=== PATIENT | male | born 1990 | race Caucasian/White ===

== ENCOUNTER 2018-01-22 16:30 | Inpatient (IN) ==
[2018-01-22] MEDS ORDERED: Ketorolac Inj 30 MG/ML (IVP) Vial IV.PUSH ONE (17:27)
[2018-01-22] MEDS ORDERED: Sod Chloride 0.9% Inj 1,000 ML IV.SIG SCH (17:30)
[2018-01-22 17:52] LABS: Baso % (Auto) 0.1 % (0.0-2.0); Hematocrit 39.5 % (39.0-51.0); Hemoglobin 13.5 gm/dL (13.0-17.0); Lymph # (Auto) 0.5 th/mm3 (1.0-4.8); Lymph % (Auto) 2.8 % (9.0-44.0); Mean Corpuscular HGB Conc 34.3 % (32.0-36.0); Mean Corpuscular Hemoglobin 30.5 pg (27.0-34.0); Mean Corpuscular Volume 89.1 fL (80.0-100.0); Mean Platelet Volume 8.9 fL (7.0-11.0); Mono # (Auto) 1.7 th/mm3 (0.0-0.9); Neut # (Auto) 14.9 th/mm3 (1.8-7.7); Neut % (Auto) 87.1 % (16.0-70.0); Platelet Count 109 th/mm3 (150-450); Red Blood Count 4.43 mil/mm3 (4.50-5.90); Red Cell Distribution Width 13.8 % (11.6-17.2); White Blood Count 17.1 th/mm3 (4.0-11.0)
--- NOTE | 2018-01-22 17:54 | XR ---
EXAM DATE: 01/22/2018 5:43 PM EST AGE/SEX: 27 years / Male INDICATIONS: . Cough. CLINICAL DATA: This is the patient's initial encounter. Patient reports that signs and symptoms have been present for 1 day and indicates a pain score of 0/10. MEDICAL/SURGICAL HISTORY: None. None. COMPARISON: No prior exams available for comparison. FINDINGS: PA and lateral views of the chest demonstrate the lungs to be symmetrically aerated without evidence of mass, infiltrate or effusion. The cardiomediastinal contours are unremarkable. Osseous structures are intact. CONCLUSION: No acute intrathoracic disease. Electronically signed by: Vidal Rodrigues MD Board Certified Radiologist 01/22/2018 5:53 PM EST
[2018-01-22 18:12] LABS: Calcium 8.7 mg/dL (8.5-10.1); Carbon Dioxide 29.6 meq/L (21.0-32.0); Potassium 3.7 meq/L (3.5-5.1)
[2018-01-22] MEDS ORDERED: Sod Chloride 0.9% Inj 700 ML IV.SIG SCH (18:15)
--- NOTE | 2018-01-22 18:20 | ED ---
HPI General Chief complaint: Urogenital-Male Stated complaint: Kidney Stone Complaint Time Seen by Provider: 01/22/18 17:14 Source: patient and family Mode of arrival: ambulatory Limitations: no limitations History of Present Illness HPI narrative: Patient is a 27-year-old male, past medical history significant for HIV, compliant with his medications, who presents with complaint of right flank pain. He eats that he was seen here almost 1 month ago and diagnosed with a urinary tract infection. He was discharged home on ciprofloxacin but has not taken it as it interferes with his antiretroviral medications. He had a CT at that time was 1 month ago which did not show any renal stones. Over the last 2-3 days he has had worsening right flank pain with nausea, vomiting, fever, chills. He does complain of congestion and cough over the last several days as well. No diarrhea. No IV drug abuse, dental procedures, invasive procedures recently. He states that his last viral load was low and CD4 count was high. Onset (ago): week(s) Location: right Radiation: flank Severity: moderate Quality: burning and aching Pain Consistency: constant Relieving factors: none Exacerbating factors: none Associated symptoms: Reports nausea/vomiting Treatments prior to arrival: Reports none Related Data Home Medications Medication Instructions Recorded Confirmed divalproex 500 mg PO BID 01/22/18 01/22/18 [id number]-tenof alafen 1 tab PO DAILY 01/22/18 01/22/18 [Genvoya] sertraline 100 mg PO DAILY 01/22/18 01/22/18 Allergies Allergy/AdvReac Type Severity Reaction Status Date / Time No Known Allergies Allergy Verified 12/28/17 14:23 Review of Systems ROS: all other systems reviewed are negative [facility] Medical History Medical History HIV disease (Acute) Kidney stones (Acute) Social History Social History Substance History: Active Abuse Second Hand Smoke Exposure: No Smoking Status: Never smoker Tobacco Type: Smokeless Tobacco How Often Do You Have a Drink Containing Alcohol: 2 to 3 times a week Recent Travel in [facility] within the Last 8 Weeks: No Recent Out of Country Travel within the Last 8 Weeks: No Substance Abuse Detail Marijuana: Substance Use Status: Active Route Used Substance Abuse: Inhalation Reason for Use: Get High Immunization History Tetanus Immunization: <5 Years Exam Narrative Exam Narrative: GENERAL: Well-appearing male in no acute distress SKIN: Focused skin assessment warm/dry. No rashes. HEAD: Atraumatic. Normocephalic. EYES: Pupils equal and round. No scleral icterus. No injection or drainage. ENT: No nasal bleeding or discharge. Mucous membranes pink and moist. NECK: Trachea midline. No JVD. CARDIOVASCULAR: Regular rate and rhythm. No murmur appreciated. Intact and equal peripheral pulses. RESPIRATORY: No accessory muscle use. Clear to auscultation. Breath sounds equal bilaterally. GASTROINTESTINAL: Abdomen soft, non-tender, nondistended. Hepatic and splenic margins not palpable. Right CVA tenderness. MUSCULOSKELETAL: No obvious deformities. No clubbing. No cyanosis. No edema. NEUROLOGICAL: Awake and alert. No obvious cranial nerve deficits. Motor grossly within normal limits. Normal speech. PSYCHIATRIC: Appropriate mood and affect; insight and judgment normal. Course Initial Documented Vital Signs Temperature 100.8 F H 01/22/18 16:32 Pulse Rate 99 H 01/22/18 16:32 Respiratory Rate 18 01/22/18 16:32 Blood Pressure 123/66 01/22/18 16:32 Pulse Oximetry 98 01/22/18 16:32 Last Documented Vital Signs Temperature 99.2 F 01/22/18 20:42 Pulse Rate 78 01/22/18 20:42 Respiratory Rate 16 01/22/18 20:42 Blood Pressure 105/59 L 01/22/18 20:42 Pulse Oximetry 99 01/22/18 20:42 Medical Decision Making [facility] Narrative Medical decision making narrative: Patient is a 27-year-old male, past medical history significant for HIV, compliant with his antiretroviral treatment, who presents with complaint of flank pain with nausea, vomiting, fever. He is febrile but not tachycardic on arrival here. Labs do reveal leukocytosis with a normal creatinine. At that time sepsis protocol was initiated and he was given Rocephin after blood cultures were drawn. Urine was concerning for infection and cultures have been sent. Ultrasound was done of the kidneys which did not show hydronephrosis. He has been admitted to Dr. Baig, hospitalist community relations director, for sepsis secondary to UTI. Medical Screen Exam Complete: Yes Emergency Medical Condition: Yes Differential Diagnosis Differential Diagnosis: Differential diagnosis includes but is not limited to renal stone, pyelonephritis, influenza. Medical Records Medical records reviewed: Yes I reviewed the patient's medical records. Lab Data Lab results reviewed: Yes I reviewed the patient's lab results. Result diagrams: 01/22/18 17:30 01/22/18 17:30 Lab Results 01/22/18 01/22/18 01/22/18 Range/Units 17:30 17:30 18:05 WBC 17.1 H (4.0-11.0) th/mm3 RBC 4.43 L (4.50-5.90) mil/mm3 Hgb 13.5 (13.0-17.0) gm/dL Hct 39.5 (39.0-51.0) % MCV 89.1 (80.0-100.0) fL MCH 30.5 (27.0-34.0) pg MCHC 34.3 (32.0-36.0) % RDW 13.8 (11.6-17.2) % Plt Count 109 L (150-450) th/mm3 MPV 8.9 (7.0-11.0) fL Neut % (Auto) 87.1 H (16.0-70.0) % Lymph % (Auto) 2.8 L (9.0-44.0) % [place] % (Auto) 10.0 H (0.0-8.0) % Eos % (Auto) 0.0 (0.0-4.0) % Baso % (Auto) 0.1 (0.0-2.0) % Neut # (Auto) 14.9 H (1.8-7.7) th/mm3 Lymph # (Auto) 0.5 L (1.0-4.8) th/mm3 [place] # (Auto) 1.7 H (0.0-0.9) th/mm3 Eos # (Auto) 0.0 (0.0-0.4) th/mm3 Baso # (Auto) 0.0 (0.0-0.2) th/mm3 WBC Differential . Differential Comment Auto diff final Sodium 139 (136-145) meq/L Potassium 3.7 (3.5-5.1) meq/L Chloride 104 (98-107) meq/L Carbon Dioxide 29.6 (21.0-32.0) meq/L Anion Gap 5 (5-15) meq/L BUN 12 (7-18) mg/dL Creatinine 1.15 (0.60-1.30) mg/dL Estimated GFR 75 L (>89) mL/min Random Glucose 112 H (74-106) mg/dL Lactic Acid (0.4-2.0) mmol/L Calcium 8.7 (8.5-10.1) mg/dL Urine Color Yellow (Yellw/Straw) Urine Clarity Cloudy H (Clear) Urine pH 7.0 (5.0-8.5) Ur Specific [place] 1.014 (1.002-1.035) Urine Protein 100 H (Neg-Trace) mg/dL Urine Glucose (UA) Negative (Negative) mg/dL Urine Ketones Negative (Negative) mg/dL Urine Occult Blood Small H (Negative) Urine Nitrate Positive H (Negative) Urine Bilirubin Negative (Negative) Urine Urobilinogen Less than 2 (Less than 2) mg/dL Ur Leukocyte Esterase Large H (Negative) Urine RBC 7 H (0-3) /hpf Urine WBC (0-5) /hpf Urine WBC Clumps Moderate H (None) Amorphous Sediment Rare H (None) /hpf Urine Bacteria Few H (None) /hpf Micro UA Comment Culture indicated Ur Microscopic Review Not Reportable Urine Culture Comments Culture indicated 01/22/18 Range/Units 18:20 WBC (4.0-11.0) th/mm3 RBC (4.50-5.90) mil/mm3 Hgb (13.0-17.0) gm/dL Hct (39.0-51.0) % MCV (80.0-100.0) fL MCH (27.0-34.0) pg MCHC (32.0-36.0) % RDW (11.6-17.2) % Plt Count (150-450) th/mm3 MPV (7.0-11.0) fL Neut % (Auto) (16.0-70.0) % Lymph % (Auto) (9.0-44.0) % [place] % (Auto) (0.0-8.0) % Eos % (Auto) (0.0-4.0) % Baso % (Auto) (0.0-2.0) % Neut # (Auto) (1.8-7.7) th/mm3 Lymph # (Auto) (1.0-4.8) th/mm3 [place] # (Auto) (0.0-0.9) th/mm3 Eos # (Auto) (0.0-0.4) th/mm3 Baso # (Auto) (0.0-0.2) th/mm3 WBC Differential Differential Comment Sodium (136-145) meq/L Potassium (3.5-5.1) meq/L Chloride (98-107) meq/L Carbon Dioxide (21.0-32.0) meq/L Anion Gap (5-15) meq/L BUN (7-18) mg/dL Creatinine (0.60-1.30) mg/dL Estimated GFR (>89) mL/min Random Glucose (74-106) mg/dL Lactic Acid 1.6 (0.4-2.0) mmol/L Calcium (8.5-10.1) mg/dL Urine Color (Yellw/Straw) Urine Clarity (Clear) Urine pH (5.0-8.5) Ur Specific [place] (1.002-1.035) Urine Protein (Neg-Trace) mg/dL Urine Glucose (UA) (Negative) mg/dL Urine Ketones (Negative) mg/dL Urine Occult Blood (Negative) Urine Nitrate (Negative) Urine Bilirubin (Negative) Urine Urobilinogen (Less than 2) mg/dL Ur Leukocyte Esterase (Negative) Urine RBC (0-3) /hpf Urine WBC (0-5) /hpf Urine WBC Clumps (None) Amorphous Sediment (None) /hpf Urine Bacteria (None) /hpf Micro UA Comment Ur Microscopic Review Urine Culture Comments Imaging Data Attestation: I personally reviewed and interpreted this imaging study as follows : Radiologist's impression: Abdomen/Bladder Ultrasound 01/22/18 17:27 CONCLUSION: 1. Echogenic kidneys consistent with medical renal disease. 2. No sonographic evidence for obstructive uropathy. Chest X-Ray 01/22/18 17:27 CONCLUSION: No acute intrathoracic disease. Discharge Plan Discharge Disposition Patient Disposition: ED Admit(ED Internal Use Only) Discharge Condition Condition: Stable Discharge Order Discharge Orders: ED Use Only Admit Order (Routine); Ordered 01/22/18 Ordered By: Ilsa Art Discharge Details Diagnosis: Acute pyelonephritis, Sepsis Physicians Team ED Provider: Ilsa Art Primary Care Provider: UNKNOWN, Attending Provider: Mateus Baig Status ED Status: Admitted Patient
[2018-01-22] MEDS: Sod Chloride 0.9% Inj 1,000 ML IV.SIG SCH ×2 (18:22→19:21)
--- NOTE | 2018-01-22 18:23 | US ---
EXAM DATE: 01/22/2018 6:18 PM EST AGE/SEX: 27 years / Male INDICATIONS: Flank pain. CLINICAL DATA: This is the patient's initial encounter. Patient reports that signs and symptoms have been present for 2 days and indicates a pain score of 1/10. MEDICAL/SURGICAL HISTORY: HIV. Kidney stones. None. COMPARISON: [facility] – [place], CT ABDOMEN & PELVIS W/O CONTRAST, 12/28/2017. . MEASUREMENTS: Right Kidney:__11.9 x 5.3 x 5.2 cm Left Kidney:__11.2 x 5.2 x 6.3 cm FINDINGS: Right Kidney: Increased echogenicity. No mass or hydronephrosis. Left Kidney: Increased echogenicity. No mass or hydronephrosis. Bladder: Decompressed. Not well evaluated. Other: None. CONCLUSION: 1. Echogenic kidneys consistent with medical renal disease. 2. No sonographic evidence for obstructive uropathy. Electronically signed by: Manish Mccall MD Board Certified Radiologist 01/22/2018 6:22 PM MARCI Dick
[2018-01-22] MEDS ORDERED: Acetaminophen 325 MG Tablet PO ONE (18:58)
[2018-01-22 19:23] LABS: Amorphous Sediment,Urine Rare /hpf; Bacteria,Urine Few /hpf; Bilirubin,Urine Negative (Negative); Clarity,Urine Cloudy (Clear); Color,Urine Yellow (Yellw/Straw); Glucose,Urine (UA) Negative (Negative); Leukocyte Esterase,Urine Large (Negative); Nitrite,Urine Positive (Negative); Specific Gravity,Urine 1.014 (1.002-1.035)
[2018-01-22] MEDS ORDERED: Bisacodyl 10 MG Supp RECTAL PRN (20:32)
[2018-01-22] MEDS: Divalproex 500 MG DR Tablet PO SCH (22:19)
[2018-01-22] MEDS: Sod Chloride 0.9% Inj 1,000 ML IV.CONT SCH (22:20)
[2018-01-22] MEDS ORDERED: Melatonin 5 MG Tablet PO PRN (22:46)
[2018-01-23] MEDS: Acetaminophen 325 MG Tablet PO PRN ×3 (00:31→13:02)
--- NOTE | 2018-01-23 04:36 | P.HPIM ---
History of Present Illness Primary Care Physician: UNKNOWN Inpatient Certification: I certify that the inpatient services were ordered in accordance with Medicare regulations governing the order. This includes certification that hospital inpatient services are reasonable and necessary and in the case of services not specified as inpatient-only under 42 CFR 419.22(n), that they are appropriately provided as inpatient services in accordance to with the 2-midnight benchmark under 43 CFR 412.3(e) Estimated Total Length of Stay (Days): 3 Plans for Post Hospital Care: Not yet determined PMFSH - History History Provided By: Patient - Medical History Medical History: Medical History (Last Reviewed 01/22/18 @ 18:18 by Ilsa Art MD) HIV disease Kidney stones - Tobacco History Second Hand Smoke Exposure: No Smoking Status: Former smoker Tobacco Type: Cigarettes - Alcohol History How Often Do You Have a Drink Containing Alcohol: 2 to 4 times a month - Substance Use History Substance History: Active Abuse - Substance Use Type Marijuana Status: Active Route Used: Inhalation Reason for Use: Get High Crack/Cocaine Status: Sustained Remission Route Used: Inhalation Reason for Use: Get High Methamphetamine Status: Sustained Remission Route Used: Inhalation Reason for Use: Get High - Travel History Recent Travel in the [place] Within the Last 8 Weeks: No Recent Travel Out of the Country Within the Last 8 Weeks: No - Immunization History Tetanus Immunization: <5 Years Medications and Allergies Active Medications: Active Medications Acetaminophen (Tylenol) 650 mg PO Q4H PRN PRN Reason: Temp > 100.4 Last Admin: 01/23/18 00:31 Dose: 650 mg Al Hydroxide/Mg Hydroxide (Milk Of Magntj Liq) 30 ml PO Q12H PRN PRN Reason: Mild Constipation Bisacodyl (Dulcolax Supp) 10 mg RECTAL DAILY PRN PRN Reason: SEVERE CONSITIPATION Divalproex Sodium (Depakote Dr) 500 mg PO BID FLORES Last Admin: 01/22/18 22:19 Dose: 500 mg Elvitegravir/Cobicis/Emtricit/Tenof (Stribild 150/150/200/300 Mg) 1 tab PO DAILY FLORES Sodium Chloride (Ns Inj) 1,000 mls @ 0 mls/hr IV.SIG .Q0M FLORES Last Infusion: 01/22/18 20:22 Dose: Infused Sodium Chloride (Ns Inj) 700 mls @ 0 mls/hr IV.SIG .Q0M FLORES Ceftriaxone Sodium 1,000 mg/ (Sodium Chloride) 100 mls @ 200 mls/hr IV.SIG Q24H FLORES Sodium Chloride (Ns Inj) 1,000 mls @ 100 mls/hr IV.CONT .Q10H [facility] Last Admin: 01/22/18 22:20 Dose: 100 mls/hr Lactulose (Lactulose Liq) 30 ml PO DAILY PRN PRN Reason: SEVERE CONSITIPATION Melatonin (Melatonin) 5 mg PO HS PRN PRN Reason: INSOMNIA Last Admin: 01/22/18 23:48 Dose: 5 mg Ondansetron HCl (Zofran Inj) 4 mg IV.PUSH Q6H PRN PRN Reason: NAUSEA OR VOMITING Last Admin: 01/22/18 23:48 Dose: 4 mg Sennosides (Senokot) 17.2 mg PO Q12H PRN PRN Reason: Moderate Constipation Sertraline HCl (Zoloft) 100 mg PO DAILY [facility] Sodium Chloride (Ns Flush) 2 ml IV.FLUSH BID [facility] Last Admin: 01/22/18 22:20 Dose: 2 ml Sodium Chloride (Ns Flush) 2 ml IV.FLUSH PRN PRN PRN Reason: FLUSH AFTER USING IV ACCESS Allergies Allergy/AdvReac Type Severity Reaction Status Date / Time No Known Allergies Allergy Verified 12/28/17 14:23 Home Medications Medication Instructions Recorded Confirmed Type divalproex 500 mg PO BID 01/22/18 01/22/18 History makkorp-aot-sadkq-tenof alafen 1 tab PO DAILY 01/22/18 01/22/18 History [Genvoya] sertraline 100 mg PO DAILY 01/22/18 01/22/18 History Exam Vital signs: Vital Signs 01/22/18 16:32 01/22/18 20:42 01/22/18 22:00 Temperature 100.8 F H 99.2 F 98.9 F Pulse Rate 99 H 78 87 Respiratory Rate 18 16 20 Blood Pressure 123/66 105/59 L 107/62 Pulse Oximetry 98 99 99 01/23/18 00:00 01/23/18 02:32 Temperature 102.3 F H 99.5 F Pulse Rate 86 Respiratory Rate 18 Blood Pressure 106/55 L Pulse Oximetry 98 Intake & Output 12/01/22/18 01/23/18 06:59 18:59 06:59 Intake Total 999 Balance 999 Weight 81.647 kg Intake: IV 999 NS Inj 1,000 ML @ Wide Open IV. 1000 999 SIG .Q0M FLORES Rx#:[id number] Rocephin Inj 1,000 MG In NS Inj 100 / 100 100 ML @ 200 mls/hr IV.SIG ONCE ONE Rx#:[id number] Results - Labs CBC & Chem 7: 01/22/18 17:30 01/22/18 17:30 Labs: Short CBC 01/22/18 Range/Units 17:30 WBC 17.1 H (4.0-11.0) th/mm3 Hgb 13.5 (13.0-17.0) gm/dL Hct 39.5 (39.0-51.0) % Plt Count 109 L (150-450) th/mm3 BMP 01/22/18 17:30 Sodium 139 Potassium 3.7 Chloride 104 Carbon Dioxide 29.6 BUN 12 Creatinine 1.15 Calcium 8.7 Urine 01/22/18 Range/Units 18:05 Urine Color Yellow (Yellw/Straw) Urine Clarity Cloudy H (Clear) Urine pH 7.0 (5.0-8.5) Ur Specific [place] 1.014 (1.002-1.035) Urine Protein 100 H (Neg-Trace) mg/dL Urine Glucose (UA) Negative (Negative) mg/dL - Imaging Impressions Abdomen/Bladder Ultrasound 01/22/18 17:27 CONCLUSION: 1. Echogenic kidneys consistent with medical renal disease. 2. No sonographic evidence for obstructive uropathy. Chest X-Ray 01/22/18 17:27 CONCLUSION: No acute intrathoracic disease. Caprini VTE Risk Assessment Caprini VTE Risk Assessment: No/Low Risk (score <= 1) Caprini Risk Assessment Model: Point Value = 1 Point Value = 2 Point Value = 3 Point Value = 5 Age 41-60 Minor surgery BMI > 25 kg/m2 Swollen legs Varicose veins or History of unexplained or recurrent spontaneous Oral contraceptives or hormone replacement Sepsis (< 1 month) Serious lung disease, including pneumonia (< 1 month) Abnormal pulmonary function Acute myocardial infarction Congestive heart failure (< 1 month) History of inflammatory bowel disease Medical patient at bed rest Age 61-74 Arthroscopic surgery Major open surgery (> 45 min) Laparoscopic surgery (> 45 min) Malignancy Confined to bed (> 72 hours) Immobilizing plaster cast Central venous access Age >= 75 History of VTE Family history of VTE Factor V Leiden Prothrombin [id number] Lupus anticoagulant Anticardiolipin antibodies Elevated serum homocysteine Heparin-induced thrombocytopenia Other congenital or acquired thrombophilia Stroke (< 1 month) Elective arthroplasty Hip, pelvis, or leg fracture Acute spinal cord injury (< 1 month) Prophylaxis Regimen: Total Risk Factor Score Risk Level Prophylaxis Regimen 0-1 Low Early ambulation 2 Moderate Order ONE of the following: *Sequential Compression Device (SCD) *Heparin 5000 units SQ BID 3-4 Higher Order ONE of the following medications: *Heparin 5000 units SQ TID *Enoxaparin/Lovenox 40 mg SQ daily (WT < 150 kg, CrCl > 30 mL/min) *Enoxaparin/Lovenox 30 mg SQ daily (WT < 150 kg, CrCl > 10-29 mL/min) *Enoxaparin/Lovenox 30 mg SQ BID (WT < 150 kg, CrCl > 30 mL/min) AND/OR *Sequential Compression Device (SCD) 5 or more Highest Order ONE of the following medications: *Heparin 5000 units SQ TID (Preferred with Epidurals) *Enoxaparin/Lovenox 40 mg SQ daily (WT < 150 kg, CrCl > 30 mL/min) *Enoxaparin/Lovenox 30 mg SQ daily (WT < 150 kg, CrCl > 10-29 mL/min) *Enoxaparin/Lovenox 30 mg SQ BID (WT < 150 kg, CrCl > 30 mL/min) AND *Sequential Compression Device (SCD) Assessment and Plan - Plan //Sepsis //Suspected right sided pyelonephritis -Renal ultrasound without obstruction Recent UTI last month with E. coli pansensitive Fever 102.3, leukocytosis, UTI Urinalysis positive for UTI. Blood cultures, urine cultures. Start on ceftriaxone and monitor. //HIV -We will check CD4 count and continue antiretroviral medications //Depression. Chronic. No SI. Continue home medication //Continue home Depakote. Discussed Condition With: Patient, nurse, ED physician. H&P: Quality - VTE Deep Vein Thrombosis/Pulmonary Embolism Present on Admission: No
--- NOTE | 2018-01-23 04:42 | P.HPIM ---
History of Present Illness Primary Care Physician: UNKNOWN History of Present Illness: 27-year-old male with a history of HIV compliant with antiretrovirals, depression, recent kidney stone, UTI last month, however unable to complete treatment with Cipro due to antiretrovirals. He presents with a 4-day history of dysuria, as well as worsening intermittent sharp right flank pain radiating intermittently to groin as well as back. He reports nausea and some nonbloody omy-pqivsv-izqvum vomiting due to the pain. He also reports subjective fevers. Denies any chest pain, shortness of breath, lightheadedness, dizziness. Inpatient Certification: I certify that the inpatient services were ordered in accordance with Medicare regulations governing the order. This includes certification that hospital inpatient services are reasonable and necessary and in the case of services not specified as inpatient-only under 42 CFR 419.22(n), that they are appropriately provided as inpatient services in accordance to with the 2-midnight benchmark under 43 CFR 412.3(e) Estimated Total Length of Stay (Days): 3 Plans for Post Hospital Care: Not yet determined Review of Systems All other systems reviewed negative except as stated in HPI [facility] - History History Provided By: Patient - Medical History Medical History: Medical History (Last Reviewed 01/23/18 @ 04:39 by Mateus Baig MD) HIV disease Kidney stones - Surgical History Surgical History: Surgical History (Last Updated 01/23/18 @ 04:40 by Mateus Baig MD) No history of previous surgery - Family History Family History: Family History (Last Updated 01/23/18 @ 04:40 by Mateus Baig MD) Mother Heart problem Father Heart problem - Tobacco History Second Hand Smoke Exposure: No Smoking Status: Former smoker Tobacco Type: Cigarettes - Alcohol History How Often Do You Have a Drink Containing Alcohol: 2 to 4 times a month - Substance Use History Substance History: Active Abuse - Substance Use Type Marijuana Status: Active Route Used: Inhalation Reason for Use: Get High Crack/Cocaine Status: Sustained Remission Route Used: Inhalation Reason for Use: Get High Methamphetamine Status: Sustained Remission Route Used: Inhalation Reason for Use: Get High - Travel History Recent Travel in the [place] Within the Last 8 Weeks: No Recent Travel Out of the Country Within the Last 8 Weeks: No - Immunization History Tetanus Immunization: <5 Years Medications and Allergies Active Medications: Active Medications Acetaminophen (Tylenol) 650 mg PO Q4H PRN PRN Reason: Temp > 100.4 Last Admin: 01/23/18 00:31 Dose: 650 mg Al Hydroxide/Mg Hydroxide (Milk Of Magnesia Liq) 30 ml PO Q12H PRN PRN Reason: Mild Constipation Bisacodyl (Dulcolax Supp) 10 mg RECTAL DAILY PRN PRN Reason: SEVERE CONSITIPATION Divalproex Sodium (Depakote Dr) 500 mg PO BID [facility] Last Admin: 01/22/18 22:19 Dose: 500 mg Elvitegravir/Cobicis/Emtricit/Tenof (Stribild 150/150/200/300 Mg) 1 tab PO DAILY [facility] Sodium Chloride (Ns Inj) 1,000 mls @ 0 mls/hr IV.SIG .Q0M [facility] Last Infusion: 01/22/18 20:22 Dose: Infused Sodium Chloride (Ns Inj) 700 mls @ 0 mls/hr IV.SIG .Q0M [facility] Ceftriaxone Sodium 1,000 mg/ (Sodium Chloride) 100 mls @ 200 mls/hr IV.SIG Q24H [facility] Sodium Chloride (Ns Inj) 1,000 mls @ 100 mls/hr IV.CONT .Q10H [facility] Last Admin: 01/22/18 22:20 Dose: 100 mls/hr Lactulose (Lactulose Liq) 30 ml PO DAILY PRN PRN Reason: SEVERE CONSITIPATION Melatonin (Melatonin) 5 mg PO HS PRN PRN Reason: INSOMNIA Last Admin: 01/22/18 23:48 Dose: 5 mg Ondansetron HCl (Zofran Inj) 4 mg IV.PUSH Q6H PRN PRN Reason: NAUSEA OR VOMITING Last Admin: 01/22/18 23:48 Dose: 4 mg Sennosides (Senokot) 17.2 mg PO Q12H PRN PRN Reason: Moderate Constipation Sertraline HCl (Zoloft) 100 mg PO DAILY [facility] Sodium Chloride (Ns Flush) 2 ml IV.FLUSH BID [facility] Last Admin: 01/22/18 22:20 Dose: 2 ml Sodium Chloride (Ns Flush) 2 ml IV.FLUSH PRN PRN PRN Reason: FLUSH AFTER USING IV ACCESS Allergies Allergy/AdvReac Type Severity Reaction Status Date / Time No Known Allergies Allergy Verified 12/28/17 14:23 Home Medications Medication Instructions Recorded Confirmed Type divalproex 500 mg PO BID 01/22/18 01/22/18 History fyqnwlt-fok-bihec-tenof alafen 1 tab PO DAILY 01/22/18 01/22/18 History [Genvoya] sertraline 100 mg PO DAILY 01/22/18 01/22/18 History Exam Vital signs: Vital Signs 01/22/18 16:32 01/22/18 20:42 01/22/18 22:00 Temperature 100.8 F H 99.2 F 98.9 F Pulse Rate 99 H 78 87 Respiratory Rate 18 16 20 Blood Pressure 123/66 105/59 L 107/62 Pulse Oximetry 98 99 99 01/23/18 00:00 01/23/18 02:32 Temperature 102.3 F H 99.5 F Pulse Rate 86 Respiratory Rate 18 Blood Pressure 106/55 L Pulse Oximetry 98 Intake & Output 01/22/18 01/22/18 01/23/18 06:59 18:59 06:59 Intake Total 1000 / 1000 2099 Balance 1000 / 1000 2099 Weight 81.647 kg Intake: IV 1000 / 1000 2099 NS Inj 1,000 ML @ Wide Open IV. 1000 / 1000 1999 / 1999 SIG .Q0M [facility] Rx#:[id number] Rocephin Inj 1,000 MG In NS Inj 100 / 100 100 ML @ 200 mls/hr IV.SIG ONCE ONE Rx#:[id number] Narrative: GENERAL: Patient lying in bed. Appears comfortable. Alert and oriented x3. SKIN: Warm and dry. HEAD: Atraumatic. Normocephalic. EYES: Pupils equal and round. No scleral icterus. No injection or drainage. ENT: No nasal bleeding or discharge. Mucous membranes pink and moist. NECK: Trachea midline. No JVD. CARDIOVASCULAR: Regular rate and rhythm. RESPIRATORY: No accessory muscle use. Clear to auscultation. Breath sounds equal bilaterally. GASTROINTESTINAL: Abdomen soft, non-tender, nondistended. Hepatic and splenic margins not palpable. Positive right CVA tenderness. No abdominal rebound or guarding. MUSCULOSKELETAL: Extremities without clubbing, cyanosis, or edema. No obvious deformities. NEUROLOGICAL: Awake and alert. No obvious cranial nerve deficits. Motor grossly within normal limits. Five out of 5 muscle strength in the arms and legs. Normal speech. PSYCHIATRIC: Appropriate mood and affect; insight and judgment normal. Results - Labs CBC & Chem 7: 01/22/18 17:30 01/22/18 17:30 Labs: Short CBC 01/22/18 Range/Units 17:30 WBC 17.1 H (4.0-11.0) th/mm3 Hgb 13.5 (13.0-17.0) gm/dL Hct 39.5 (39.0-51.0) % Plt Count 109 L (150-450) th/mm3 BMP 01/22/18 17:30 Sodium 139 Potassium 3.7 Chloride 104 Carbon Dioxide 29.6 BUN 12 Creatinine 1.15 Calcium 8.7 Urine 01/22/18 Range/Units 18:05 Urine Color Yellow (Yellw/Straw) Urine Clarity Cloudy H (Clear) Urine pH 7.0 (5.0-8.5) Ur Specific Golden 1.014 (1.002-1.035) Urine Protein 100 H (Neg-Trace) mg/dL Urine Glucose (UA) Negative (Negative) mg/dL - Imaging Impressions Abdomen/Bladder Ultrasound 01/22/18 17:27 CONCLUSION: 1. Echogenic kidneys consistent with medical renal disease. 2. No sonographic evidence for obstructive uropathy. Chest X-Ray 01/22/18 17:27 CONCLUSION: No acute intrathoracic disease. Caprini VTE Risk Assessment Caprini VTE Risk Assessment: No/Low Risk (score <= 1) Caprini Risk Assessment Model: Point Value = 1 Point Value = 2 Point Value = 3 Point Value = 5 Age 41-60 Minor surgery BMI > 25 kg/m2 Swollen legs Varicose veins or History of unexplained or recurrent spontaneous Oral contraceptives or hormone replacement Sepsis (< 1 month) Serious lung disease, including pneumonia (< 1 month) Abnormal pulmonary function Acute myocardial infarction Congestive heart failure (< 1 month) History of inflammatory bowel disease Medical patient at bed rest Age 61-74 Arthroscopic surgery Major open surgery (> 45 min) Laparoscopic surgery (> 45 min) Malignancy Confined to bed (> 72 hours) Immobilizing plaster cast Central venous access Age >= 75 History of VTE Family history of VTE Factor V Leiden Prothrombin [id number] Lupus anticoagulant Anticardiolipin antibodies Elevated serum homocysteine Heparin-induced thrombocytopenia Other congenital or acquired thrombophilia Stroke (< 1 month) Elective arthroplasty Hip, pelvis, or leg fracture Acute spinal cord injury (< 1 month) Prophylaxis Regimen: Total Risk Factor Score Risk Level Prophylaxis Regimen 0-1 Low Early ambulation 2 Moderate Order ONE of the following: *Sequential Compression Device (SCD) *Heparin 5000 units SQ BID 3-4 Higher Order ONE of the following medications: *Heparin 5000 units SQ TID *Enoxaparin/Lovenox 40 mg SQ daily (WT < 150 kg, CrCl > 30 mL/min) *Enoxaparin/Lovenox 30 mg SQ daily (WT < 150 kg, CrCl > 10-29 mL/min) *Enoxaparin/Lovenox 30 mg SQ BID (WT < 150 kg, CrCl > 30 mL/min) AND/OR *Sequential Compression Device (SCD) 5 or more Highest Order ONE of the following medications: *Heparin 5000 units SQ TID (Preferred with Epidurals) *Enoxaparin/Lovenox 40 mg SQ daily (WT < 150 kg, CrCl > 30 mL/min) *Enoxaparin/Lovenox 30 mg SQ daily (WT < 150 kg, CrCl > 10-29 mL/min) *Enoxaparin/Lovenox 30 mg SQ BID (WT < 150 kg, CrCl > 30 mL/min) AND *Sequential Compression Device (SCD) Assessment and Plan - Plan //Sepsis //Suspected right sided pyelonephritis -Renal ultrasound without obstruction Recent UTI last month with E. coli pansensitive Fever 102.3, leukocytosis, UTI Urinalysis positive for UTI. Blood cultures, urine cultures. Start on ceftriaxone and monitor. //HIV -We will check CD4 count and continue antiretroviral medications //Depression. Chronic. No SI. Continue home medication //Continue home Depakote. Discussed Condition With: patient, Nurse, ED physician. H&P: Quality - VTE Deep Vein Thrombosis/Pulmonary Embolism Present on Admission: No
[2018-01-23] MEDS: Elvitegravir/Cobi/Emtricit/Tenof 150/150/200/300 MG Tablet PO SCH (08:22)
[2018-01-23] MEDS: Divalproex 500 MG DR Tablet PO SCH ×2 (08:23→21:16)
[2018-01-23] MEDS: Sertraline 100 MG Tablet PO SCH (08:23)
[2018-01-23] MEDS: Sod Chloride 0.9% Inj 1,000 ML IV.CONT SCH ×2 (08:24→17:13)
[2018-01-23 09:23] LABS: Baso % (Auto) 0.1 % (0.0-2.0); Hematocrit 36.6 % (39.0-51.0); Hemoglobin 12.1 gm/dL (13.0-17.0); Lymph # (Auto) 0.8 th/mm3 (1.0-4.8); Lymph % (Auto) 5.9 % (9.0-44.0); Mean Corpuscular HGB Conc 33.1 % (32.0-36.0); Mean Corpuscular Hemoglobin 29.9 pg (27.0-34.0); Mean Corpuscular Volume 90.2 fL (80.0-100.0); Mean Platelet Volume 9.4 fL (7.0-11.0); Mono # (Auto) 1.7 th/mm3 (0.0-0.9); Mono % (Auto) 12.1 % (0.0-8.0); Neut # (Auto) 11.3 th/mm3 (1.8-7.7); Neut % (Auto) 81.9 % (16.0-70.0); Platelet Count 86 th/mm3 (150-450); Red Blood Count 4.06 mil/mm3 (4.50-5.90); White Blood Count 13.8 th/mm3 (4.0-11.0)
[2018-01-23 09:55] LABS: Alanine Aminotransferase 58 U/L (12-78); Albumin 2.7 g/dL (3.4-5.0); Anion Gap 6 meq/L (5-15); Calcium 7.9 mg/dL (8.5-10.1); Carbon Dioxide 27.9 meq/L (21.0-32.0); Chloride 108 meq/L (98-107); Glomerular Filtration Rate 83 mL/min (>89); Glucose,Random 138 mg/dL (74-106); Potassium 4.2 meq/L (3.5-5.1); Sodium 142 meq/L (136-145)
[2018-01-23 10:01] LABS: Alkaline Phosphatase 63 U/L (45-117); Aspartate Aminotransferase 36 U/L (15-37); Blood Urea Nitrogen 14 mg/dL (7-18); Total Protein 5.9 g/dL (6.4-8.2)
[2018-01-23 10:20] LABS: Lymphocytes 3 % (9-44); Monocytes 8 % (0-8); Platelet Morphology Normal (Normal)
[2018-01-23] MEDS ORDERED: Ketorolac Inj 30 MG/ML (IVP) Vial IV.PUSH ONE (16:59)
[2018-01-23] MEDS: Morphine Sulfate Inj 2 MG/ML Vial IV.PUSH PRN (17:13)
[2018-01-24] MEDS: Morphine Sulfate Inj 2 MG/ML Vial IV.PUSH PRN (01:07)
[2018-01-24] MEDS: Sod Chloride 0.9% Inj 1,000 ML IV.CONT SCH ×3 (05:32→15:39)
[2018-01-24] MEDS: Divalproex 500 MG DR Tablet PO SCH ×2 (09:18→20:01)
[2018-01-24] MEDS: Elvitegravir/Cobi/Emtricit/Tenof 150/150/200/300 MG Tablet PO SCH (09:18)
[2018-01-24] MEDS: Sertraline 100 MG Tablet PO SCH (09:18)
--- NOTE | 2018-01-24 16:05 | P.PNIM ---
Subjective Interval history: Follow-up pyelonephritis, right flank pain Patient is sitting up in bed. He reports continued improvement in his right flank pain. No difficulty urinating. No hematuria. No fevers or chills. Patient states he has been applying alternating heat and ice to his right flank area with improvement in his symptoms. Physical Exam Vital signs: Last Vital Signs Temp 97.3 F L 01/24/18 07:36 Pulse 64 01/24/18 11:43 Resp 16 01/24/18 11:43 BP 112/66 01/24/18 11:43 Pulse Ox 99 01/24/18 11:43 Intake & Output 01/22/18 01/23/18 01/24/18 01/25/18 06:59 06:59 06:59 06:59 Intake Total 3280 / 3280 3100 / 3100 1000 / 1000 Output Total 900 / 900 Balance 3280 / 3280 2200 / 2200 1000 / 1000 Weight 81.647 kg 79.2 kg Narrative: GENERAL: Patient lying in bed. Appears comfortable. Alert and oriented x3. SKIN: Warm and dry. HEAD: Atraumatic. Normocephalic. EYES: Pupils equal and round. No scleral icterus. No injection or drainage. ENT: No nasal bleeding or discharge. Mucous membranes pink and moist. NECK: Trachea midline. No JVD. CARDIOVASCULAR: Regular rate and rhythm. RESPIRATORY: No accessory muscle use. Clear to auscultation. Breath sounds equal bilaterally. GASTROINTESTINAL: Abdomen soft, non-tender, nondistended. Positive right CVA tenderness. No abdominal rebound or guarding. MUSCULOSKELETAL: Extremities without clubbing, cyanosis, or edema. No obvious deformities. NEUROLOGICAL: Awake and alert. No obvious cranial nerve deficits. Motor grossly within normal limits. Five out of 5 muscle strength in the arms and legs. Normal speech. PSYCHIATRIC: Appropriate mood and affect; insight and judgment normal. Results Labs CBC & Chem 7: 01/23/18 08:42 01/23/18 08:42 Labs: Microbiology 01/22/18 18:05 Blood - Peripheral Aerobic Blood Culture - Preliminary No growth in 2 days 01/22/18 18:05 Blood - Peripheral Anaerobic Blood Culture - Preliminary No growth in 2 days 01/22/18 18:20 Blood - Peripheral Aerobic Blood Culture - Preliminary No growth in 2 days 01/22/18 18:20 Blood - Peripheral Anaerobic Blood Culture - Preliminary No growth in 2 days 01/22/18 18:05 Clean Catch Urine Urine Culture - Final Escherichia coli Assessment and Plan Plan Patient is a pleasant 27-year-old male with a past medical history significant for HIV compliant with antiretrovirals, depression, recent kidney stone and UTI last month. He presented with a 4-day history of dysuria and worsening of right -sided flank pain radiating intermittently to his groin as well as his back. E-coli urinary tract infection with acute pyelonephritis -CT abdomen and pelvis without IV contrast shows trace amount of free fluid deep within the pelvis Ultrasound abdomen bladder shows echogenic kidneys consistent with medical renal disease, no sonographic evidence of obstructive uropathy urine cx (+) e-coli, sensitive to Ceftriaxone -continue IV Ceftriaxone -continue IV fluids -pain meds PRN -supportive care HIV -Continue antiretroviral therapy -CD4 count pending Hx of depression, chronic and stable -continue home meds MDM: self Code: Full GI ppx: regular diet DVT ppx: SCD's, ambulatory Code Status: Full Discussed Condition With: RN, patient Discharge Planning: Home once medically optimized Progress Note: Quality VTE Deep Vein Thrombosis/Pulmonary Embolism Present on Admission: No
[2018-01-25] MEDS: Acetaminophen 325 MG Tablet PO PRN (01:04)
[2018-01-25] MEDS: Sod Chloride 0.9% Inj 1,000 ML IV.CONT SCH ×4 (02:17→20:23)
[2018-01-25] MEDS: Sertraline 100 MG Tablet PO SCH (09:33)
[2018-01-25] MEDS: Elvitegravir/Cobi/Emtricit/Tenof 150/150/200/300 MG Tablet PO SCH (09:34)
[2018-01-25] MEDS: Divalproex 500 MG DR Tablet PO SCH ×2 (09:34→20:21)
[2018-01-25 10:15] LABS: Baso % (Auto) 0.2 % (0.0-2.0); Eos # (Auto) 0.1 th/mm3 (0.0-0.4); Eos % (Auto) 1.1 % (0.0-4.0); Hematocrit 36.4 % (39.0-51.0); Hemoglobin 12.2 gm/dL (13.0-17.0); Lymph # (Auto) 0.8 th/mm3 (1.0-4.8); Lymph % (Auto) 11.4 % (9.0-44.0); Mean Corpuscular HGB Conc 33.6 % (32.0-36.0); Mean Corpuscular Hemoglobin 30.3 pg (27.0-34.0); Mean Corpuscular Volume 90.2 fL (80.0-100.0); Mono # (Auto) 0.8 th/mm3 (0.0-0.9); Mono % (Auto) 12.8 % (0.0-8.0); Neut # (Auto) 4.9 th/mm3 (1.8-7.7); Neut % (Auto) 74.5 % (16.0-70.0); Platelet Count 102 th/mm3 (150-450); Red Blood Count 4.04 mil/mm3 (4.50-5.90); Red Cell Distribution Width 14.5 % (11.6-17.2); White Blood Count 6.6 th/mm3 (4.0-11.0)
[2018-01-25 10:45] LABS: Anion Gap 5 meq/L (5-15); Blood Urea Nitrogen 10 mg/dL (7-18); Calcium 8.1 mg/dL (8.5-10.1); Carbon Dioxide 28.4 meq/L (21.0-32.0); Chloride 106 meq/L (98-107); Glomerular Filtration Rate Greater Than 89 mL/min (>89); Glucose,Random 94 mg/dL (74-106); Potassium 3.8 meq/L (3.5-5.1); Sodium 139 meq/L (136-145)
[2018-01-25] MEDS: Senna/Docusate Sodium 8.6/50 MG Tablet PO SCH ×2 (13:22→20:21)
--- NOTE | 2018-01-25 16:34 | P.PNIM ---
Subjective Interval history: Follow-up pyelonephritis, for right flank pain, fever Patient seen and examined while resting in bed. He continues to experience improvement in his right-sided flank pain. His urine is yellow and clear. He reports good urine output. Patient reports fever overnight. Overall improving. Physical Exam Vital signs: Last Vital Signs Temp 98.2 F 01/25/18 16:28 Pulse 78 01/25/18 16:28 Resp 20 01/25/18 16:28 BP 124/85 01/25/18 16:28 Pulse Ox 98 01/25/18 16:28 Intake & Output 01/23/18 01/24/18 01/25/18 01/26/18 06:59 06:59 06:59 06:59 Intake Total 3280 / 3280 3100 / 3100 2700 / 2700 1000 / 1000 Output Total 900 / 900 2525 / 2525 Balance 3280 / 3280 2200 / 2200 175 / 175 1000 / 1000 Weight 81.647 kg 79.2 kg 79.2 kg Narrative: GENERAL: no acute distress, well developed, well nourished SKIN: warm and dry HEAD: atraumatic, normocephalic. EYES: Pupils equal and round. No scleral icterus. No injection or drainage. ENT: No nasal bleeding or discharge. Mucous membranes pink and moist. NECK: Trachea midline. No JVD. CARDIOVASCULAR: Regular rate and rhythm. RESPIRATORY: No accessory muscle use. Clear to auscultation. Breath sounds equal bilaterally. GASTROINTESTINAL: Abdomen soft, non-tender, nondistended. Positive right CVA tenderness. No abdominal rebound or guarding. MUSCULOSKELETAL: Extremities without clubbing, cyanosis, or edema. No obvious deformities. NEUROLOGICAL: Awake and alert. No obvious cranial nerve deficits. Motor grossly within normal limits. Five out of 5 muscle strength in the arms and legs. Normal speech. PSYCHIATRIC: Appropriate mood and affect; insight and judgment normal. Results Labs CBC & Chem 7: 01/25/18 09:53 01/25/18 09:53 Labs: Microbiology 01/22/18 18:05 Blood - Peripheral Aerobic Blood Culture - Preliminary No growth in 3 days 01/22/18 18:05 Blood - Peripheral Anaerobic Blood Culture - Preliminary No growth in 3 days 01/22/18 18:20 Blood - Peripheral Aerobic Blood Culture - Preliminary No growth in 3 days 12/14/18 18:20 Blood - Peripheral Anaerobic Blood Culture - Preliminary No growth in 3 days Assessment and Plan Plan Patient is a pleasant 27-year-old male with a past medical history significant for HIV compliant with antiretrovirals, depression, recent kidney stone and UTI last month. He presented with a 4-day history of dysuria and worsening of right -sided flank pain radiating intermittently to his groin as well as his back. E-coli urinary tract infection with acute pyelonephritis - evaluated 01/25/18 -CT abdomen and pelvis without IV contrast shows trace amount of free fluid deep within the pelvis Ultrasound abdomen bladder shows echogenic kidneys consistent with medical renal disease, no sonographic evidence of obstructive uropathy urine cx (+) e-coli, sensitive to Ceftriaxone -continue IV Ceftriaxone -continue IV fluids -pain meds PRN -supportive care Fever -Tmax 101F overnight -monitor -Tylenol PRN -BCX w/ no growth HIV -Continue antiretroviral therapy -CD4 count pending Hx of depression, chronic and stable -continue home meds MDM: self Code: Full GI ppx: regular diet DVT ppx: SCD's, ambulatory Discharge Planning: Home once medically optimized Progress Note: Quality VTE Deep Vein Thrombosis/Pulmonary Embolism Present on Admission: No
[2018-01-26] MEDS: Sod Chloride 0.9% Inj 1,000 ML IV.CONT SCH ×3 (00:47→09:59)
[2018-01-26 04:51] VITALS: O2SAT 100
[2018-01-26 08:06] VITALS: BP 132/87; PULSE 55; RESP 14; TEMP 97
[2018-01-26] MEDS: Sertraline 100 MG Tablet PO SCH (08:18)
[2018-01-26] MEDS: Divalproex 500 MG DR Tablet PO SCH (08:18)
[2018-01-26] MEDS: Senna/Docusate Sodium 8.6/50 MG Tablet PO SCH (08:18)
[2018-01-26] MEDS: Elvitegravir/Cobi/Emtricit/Tenof 150/150/200/300 MG Tablet PO SCH (08:18)
--- NOTE | 2018-01-26 13:54 | P.DS ---
DS: Providers Date of admission: 01/22/18 20:33 Primary care physician: UNKNOWN Anticipated date of discharge: 01/26/18 Brief History from admission: 27-year-old male with a history of HIV compliant with antiretrovirals, depression, recent kidney stone, UTI last month, however unable to complete treatment with Cipro due to antiretrovirals. He presents with a 4-day history of dysuria, as well as worsening intermittent sharp right flank pain radiating intermittently to groin as well as back. He reports nausea and some nonbloody zeq-ebhqol-ggyvdw vomiting due to the pain. He also reports subjective fevers. Denies any chest pain, shortness of breath, lightheadedness, dizziness. DS: Diagnosis Discharge Diagnosis (1) Acute pyelonephritis: Status: Acute Diagnosis: Principal (2) Sepsis: Status: Acute Diagnosis: Principal (3) HIV (human immunodeficiency virus infection): Status: Acute Diagnosis: Secondary (4) Leukocytosis: Status: Acute Diagnosis: Principal DS: Summary Patient was admitted under the care of the hospitalist service. He was treated with IV ceftriaxone. His urine culture grew E. coli sensitive to ceftriaxone. His blood cultures remain negative. An influenza a and B antigen screen was completed and resulted as negative. Patient is HIV positive and his antiretroviral medications were continued. His CD4 count was ordered, however, this was not resulted at the time of discharge. Patient advised to follow-up with his primary care provider post discharge for results. Patient presented with right-sided flank pain and this continued to improve and was minimal on day of discharge. Patient is ambulatory. ED precautions were provided for any worsening signs and/or symptoms. All questions were answered at bedside. Patient was hemodynamically stable at time of discharge. Time Spent with Patient Total time spent providing and/or coordinating discharge services: Less than 30 minutes Status at Discharge Functional status at discharge: independent ambulation Overall status at discharge: patient is progressing back to baseline Quality: VTE Deep Vein Thrombosis/Pulmonary Embolism Present on Admission: No Exam Narrative Exam Narrative: GENERAL: no acute distress, well developed, well nourished SKIN: Warm and dry. HEAD: Normocephalic, atraumatic EYES: No scleral icterus. No injection or drainage. NECK: Supple, trachea midline. No JVD or lymphadenopathy. CARDIOVASCULAR: Regular rate and rhythm without murmurs, gallops, or rubs. RESPIRATORY: Breath sounds equal bilaterally. No accessory muscle use. GASTROINTESTINAL: Abdomen soft, non-tender, nondistended. MUSCULOSKELETAL: No cyanosis, or edema. Results Labs on day of discharge: Preliminary micro results at discharge 01/22/18 18:05 Aerobic Blood Culture - Preliminary Blood - Peripheral No growth in 4 days Anaerobic Blood Culture - Preliminary No growth in 4 days 01/22/18 18:20 Aerobic Blood Culture - Preliminary Blood - Peripheral No growth in 4 days Anaerobic Blood Culture - Preliminary No growth in 4 days Impressions ITS Impressions Abdomen/Bladder Ultrasound 01/22/18 17:27 CONCLUSION: 1. Echogenic kidneys consistent with medical renal disease. 2. No sonographic evidence for obstructive uropathy. Chest X-Ray 01/22/18 17:27 CONCLUSION: No acute intrathoracic disease. Discharge Plan Discharge Disposition Patient Disposition: Discharge Home Discharge Condition Condition: Stable Discharge Order Discharge Orders: Discharge Order (Routine); Ordered 01/26/18 Ordered By: Alexia Brown Discharge Details Anticipated Discharge Date: 01/26/18 Physicians Team ED Provider: Ilsa Art Primary Care Provider: UNKNOWN, Attending Provider: Yady Chowdhury Rxs /Orders / Referrals /Forms Prescriptions: New cefdinir 300 mg capsule 300 mg PO BID 9 Days Qty: 18 RF: 0 Continue sertraline 100 mg Tablet 100 mg PO DAILY RF: 0 divalproex 500 mg Tablet,Delayed Release (Dr/Ec) 500 mg PO BID RF: 0 hdndynn-eaw-eypts-tenof alafen [Genvoya] [phone] mg Tablet 1 tab PO DAILY RF: 0 Referrals: Primary Care Ratna,Olivia [Family Provider] - See Instructions (Please follow up with a primary care provider of your choice in 1 week. ) UNKNOWN, [Primary Care Provider] - See Instructions Discharge Instructions Patient Printed Instructions: Urinary Tract Infection in Men (ED) Additional Instructions: Your Health Problems: Goals to Promote Your Health: * To prevent worsening of your condition * To maintain your health at the optimal level Directions to Meet Your Goals: * Take your medications as prescribed * Follow your dietary instruction * Follow activity as directed * Keep your appointments as scheduled * Take your immunizations and boosters as scheduled * If your symptoms worsen call your PCP * If no PCP go to Urgent Care or Emergency Room Smoking is dangerous to your health. Avoid second hand smoke. You may reach the 24-hour crisis hotline for domestic abuse at . Status ED Status: Left Department Discharge Information Discharge Date/Time: 01/26/18 10:59
== END 2018-01-26 10:59 | disposition home or self-care (01) ==
LOC: NEPD 16:30 → NEDA 20:33 → NEPHCDU 21:52
PROVIDERS: ADMIT Internal Medicine; ATTEND Internal Medicine
DX: F32.9 Major depressive disorder, single episode, unspecified; Z87.891 Personal history of nicotine dependence; B20 Human immunodeficiency virus [HIV] disease; N10 Acute pyelonephritis; B96.20 Unspecified Escherichia coli [E. coli] as the cause of diseases classified elsewhere; N39.0 Urinary tract infection, site not specified; Z79.899 Other long term (current) drug therapy; A41.9 Sepsis, unspecified organism